=== PATIENT | male | born 1985 | race Two or more races ===

== ENCOUNTER 2024-09-07 12:40 | Emergency (ER) | payer BC, OTHER ==
[~2024-09-07] VITALS: Ht 185.4 cm; Wt 105.1 kg
--- NOTE | 2024-09-07 13:41 | ED.PDOC ---
Back pain HPI HPI Comments 38 year old male presents to the ED with chief complaint of back pain. Patient reports that he has been experiencing lower back pain for the past 2 days, but denies any injury or fall. Patient relays that his pain has worsened over time and is worse when sitting down driving. Patient denies any numbness, weakness, fever, chills, head injury, or fall. Chief Complaint: Back Pain Time Seen by MD: 13:33 Reviewed Notes: Nurses Notes, Medications, Allergies Allergies: Coded Allergies: NO KNOWN ALLERGIES (Unverified , 09/07/24) Information Source: Patient Mode of Arrival: Ambulatory Timing: Days Duration: Since onset Location of Back pain: (B) Lower back Severity: Moderate Prehospital treatment: None Quality: Aching Onset: Spontaneous History of: None Modifying Factors: Movement, Twisting Past Medical History PAST MEDICAL HISTORY: DM Surgical History: Denies all surgeries Family History Family History: Reviewed,noncontributory to illness Social History Smoker: Cigarettes Alcohol: Occasionally Drugs: Denies Drug Use Lives In: Home Constitutional: denies: chills, diaphoresis, fatigue, fever, malaise, sweats, weakness, others EENTM: denies: blurred vision, double vision, ear bleeding, ear discharge, ear drainage, ear pain, ear ringing, eye pain, eye redness, hearing loss, mouth pain, mouth swelling, nasal discharge, nose bleeding, nose congestion, nose pain, photophobia, tearing, throat pain, throat swelling, voice changes, others Respiratory: denies: cough, hemoptysis, orthopnea, SOB at rest, shortness of breath, SOB with excertion, stridor, wheezing, others Cardiovascular: denies: chest pain, dizzy spells, diaphoresis, Dyspnea on exertion, edema, irregular heart beat, left arm pain, lightheadedness, palpitations, PND, syncope, others Gastrointestinal: denies: abdomen distended, abdominal pain, blood streaked bowels, constipated, diarrhea, dysphagia, difficulty swallowing, hematemesis, melena, nausea, poor appetite, poor fluid intake, rectal bleeding, rectal pain, vomiting, others Genitourinary: denies: burning, dysuria, flank pain, frequency, hematuria, incontinence, penile discharge, penile sore, pain, testicle pain, testicle swelling, urgency, others Neurological: denies: dizziness, fainting, headache, left sided numbness, left sided weakness, numbness, paresthesia, pre-existing deficit, right sided numbness, right sided weakness, seizure, speech problems, tingling, tremors, weakness, others Musculoskeletal: reports: back pain; denies: gout, joint pain, joint swelling, muscle pain, muscle stiffness, neck pain, others Integumetry: denies: bruises, change in color, change in hair/nails, dryness, laceration, lesions, lumps, rash, wounds, others Allergic/Immunocompromised: denies: Difficulty Healing, Frequent Infections, Hives, Itching, others Hematologic/Lymphatic: denies: anemia, blood clots, easy bleeding, easy bruising, swollen glands, others Endocrine: denies: excessive hunger, excessive sweating, excessive thirst, excessive urination, flushing, intolerance to cold, intolerance to heat, unexplained weight gain, unexplained weight loss, others Psychiatric: denies: anxiety, bipolar disorder, depression, hopeless, panic disorder, schizophrenia, sleepless, suicidal, others All Other Systems: Reviewed and Negative Physical Exam General Appearance: No Apparent Distress, Normal HEENT: Normal ENT Inspection, Pharynx Normal, TMs Normal Neck: Full Range of Motion, Non-Tender, Normal, Normal Inspection Respiratory: Chest Non-Tender, Lungs Clear, No Accessory Muscle Use, No Respiratory Distress, Normal Breath Sounds Cardiovascular: No Edema, No JVD, No Murmur, No Gallop, Normal Peripheral Pulses, Regular Rate/Rhythm Breast Exam: Deferred Gastrointestinal: No Organomegaly, Non Tender, No Pulsatile Mass, Normal Bowel Sounds, Soft Genitalia: Deferred Pelvic: Deferred Rectal: Deferred Extremities: No calf tenderness, Normal capillary refill, Normal inspection, Normal range of motion, Non-tender, No pedal edema Musculoskeletal : Extremity Location: Back (Parathoracic spine tenderness, no mid-line tenderness.) Apperance: Normal Neurologic: 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 Was a procedure done?: No Back Pain Differential Dx Differential Diagnosis: Fracture, Musculoskeletal Pain, Pyelonephritis, Urinary Tract Infection, Urolithiasis X-Ray, Labs, Meds, VS Vital Signs Date Time Temp Pulse Resp B/P (MAP) Pulse Ox O2 Delivery O2 Flow Rate FiO2 09/07/24 12:59 97.6 78 19 133/91 (105) 95 Time of 1ST Reevaluation: 13:40 Reevaluation 1ST: Unchanged Patient Education/Counseling: Diagnosis, Treatment Family Education/Counseling: No Family Present Additional Information - I discussed treatments and results with medical personnel. pt has reproducible para thoracic muscle tenderness and pain with ROM. i will treat him with flexeril and motrin for now. he is stable to follow up with his PCP Departure 1 Departure Time of Disposition: 14:00 Impression: Primary Impression: Musculoskeletal pain Disposition: HOME / SELF CARE / HOMELESS Condition: Good e-Prescriptions Cyclobenzaprine Hcl (Cyclobenzaprine Hcl) 10 Mg Tab 10 MG PO Q8HP PRN for 3 Days, #9 TAB Prov: BERNICE PIMENTEL MD 09/07/24 Ibuprofen Micronized (MOTRIN TABLET) 600 Mg Tb 600 MG PO TID PRN, #40 TAB *Black box warning-NSAIDS can increase risk of NM & hypertension, GI irritation, ulceration, bleed, perferation. Do not use post cardiac surgery. Use short duration/lowest effective dose. Prov: BERNICE PIMENTEL MD 09/07/24 Discharged With: Self Critical Care Note Critical Care Time?: No Stability Stability form required: No Heart Score Heart Score: Heart Score Response (Comments) Value History N/A 0 EKG N/A 0 Age N/A 0 Risk Factors N/A 0 Troponin N/A 0 Total 0 I personally scribed for BERNICE PIMENTEL MD ([email or web address]) on 09/07/24 at 13:41. Electronically submitted by Zackary Yanes ([email or web address]). BERNICE PIMENTEL MD Sep 07, 2024 13:41
[2024-09-07] MEDS ORDERED: CYCL-838 PO (14:00)
[2024-09-07] MEDS ORDERED: IBU600T PO (14:00)
[2024-09-07] MEDS ORDERED: CYCL-839 PO (14:03)
[2024-09-07 14:22] VITALS: BP 132/95; PULSE 97; RESP 18; TEMP 97.6; O2SAT 95
== END 2024-09-07 14:25 | disposition home or self-care (01) ==
LOC: ER 12:40
DX: M54.50 Low back pain, unspecified (principal); E11.9 Type 2 diabetes mellitus without complications; F17.210 Nicotine dependence, cigarettes, uncomplicated; M79.18 Myalgia, other site

== ENCOUNTER 2024-09-25 19:34 | Emergency (ER) | payer BC, OTHER ==
[~2024-09-25] VITALS: Ht 185.4 cm; Wt 102.4 kg
[~2024-09-25 19:34] MED LIST: CYCL-838 PO; CYCL-839 PO; IBU600T PO
--- NOTE | 2024-09-25 20:43 | DVH ---
INDICATION: Back pain COMPARISON: None TECHNIQUE: For views of the thoracic spine were obtained. FINDINGS: There are 12 rib-bearing thoracic type vertebral bodies. Pedicles are intact. The vertebral body heig hts are maintained. There is no acute fracture. Minor thoracic spondylosis. Visualized lungs are charity r. IMPRESSION: No acute fracture.
[2024-09-25] MEDS ORDERED: TIZA4TAB9 PO (20:53)
[2024-09-25] MEDS ORDERED: METH4PAK PO (20:53)
--- NOTE | 2024-09-25 20:53 | ED.PDOC ---
Back pain HPI HPI Comments This is a 38-year-old male presents to the ED chief complaint back pain x2 weeks. Patient states around 4 days ago was seen here in the ER was prescribed and sent medication to the pharmacy however was unable to fill them. Patient states injury or twisting motion 8/10 on pain scale sore achy in nature to bilateral thoracic mid back. Numbness, weakness, fever, chills, loss of bowel or bladder control or saddle anesthesia. Chief Complaint: Back Pain Time Seen by MD: 19:41 Reviewed Notes: Nurses Notes, Medications, Allergies Allergies: Coded Allergies: NO KNOWN ALLERGIES (Unverified , 09/07/24) Home Meds Active Scripts Methylprednisolone (Medrol Dosepak) 4 Mg Je, 4 MG PO UD for 6 Days, #21 TAB UAD Prov:ENOC PAINTERP 09/25/24 Tizanidine Hydrochloride (Zanaflex) 4 Mg Tab, 1 TAB PO BID PRN for 5 Days, #10 TAB Prov:ENOC PAINTER 09/25/24 Ibuprofen Micronized (MOTRIN TABLET) 600 Mg Tb, 600 MG PO TID PRN, #40 TAB *Black box warning-NSAIDS can increase risk of AL & hypertension, GI irritation, ulceration, bleed, perferation. Do not use post cardiac surgery. Use short duration/lowest effective dose. Prov:BERNICE PIMENTEL MD 09/07/24 Ibuprofen Micronized (MOTRIN TABLET) 600 Mg Tb, 600 MG PO TID PRN, #40 TAB *Black box warning-NSAIDS can increase risk of AL & hypertension, GI irritation, ulceration, bleed, perferation. Do not use post cardiac surgery. Use short duration/lowest effective dose. Prov:BERNICE PIMENTEL MD 09/07/24 Discontinued Scripts Cyclobenzaprine Hcl (Cyclobenzaprine Hcl) 10 Mg Tab, 10 MG PO Q8HP PRN for 3 Days, #9 TAB Prov:BERNICE PIMENTEL MD 09/07/24 Information Source: Patient Mode of Arrival: Ambulatory Past Medical History PAST MEDICAL HISTORY: DM Surgical History: Denies all surgeries Family History Family History: Reviewed,noncontributory to illness Social History Smoker: Cigarettes Alcohol: Occasionally Drugs: Denies Drug Use Lives In: Home Constitutional: denies: chills, diaphoresis, fatigue, fever, malaise, sweats, weakness, others EENTM: denies: blurred vision, double vision, ear bleeding, ear discharge, ear drainage, ear pain, ear ringing, eye pain, eye redness, hearing loss, mouth pain, mouth swelling, nasal discharge, nose bleeding, nose congestion, nose pain, photophobia, tearing, throat pain, throat swelling, voice changes, others Respiratory: denies: cough, hemoptysis, orthopnea, SOB at rest, shortness of breath, SOB with excertion, stridor, wheezing, others Cardiovascular: denies: chest pain, dizzy spells, diaphoresis, Dyspnea on exertion, edema, irregular heart beat, left arm pain, lightheadedness, palpitations, PND, syncope, others Gastrointestinal: denies: abdomen distended, abdominal pain, blood streaked bowels, constipated, diarrhea, dysphagia, difficulty swallowing, hematemesis, melena, nausea, poor appetite, poor fluid intake, rectal bleeding, rectal pain, vomiting, others Genitourinary: denies: burning, dysuria, flank pain, frequency, hematuria, incontinence, penile discharge, penile sore, pain, testicle pain, testicle swelling, urgency, others Neurological: denies: dizziness, fainting, headache, left sided numbness, left sided weakness, numbness, paresthesia, pre-existing deficit, right sided numbness, right sided weakness, seizure, speech problems, tingling, tremors, weakness, others Musculoskeletal: reports: back pain; denies: gout, joint pain, joint swelling, muscle pain, muscle stiffness, neck pain, others Integumetry: denies: bruises, change in color, change in hair/nails, dryness, laceration, lesions, lumps, rash, wounds, others Allergic/Immunocompromised: denies: Difficulty Healing, Frequent Infections, Hives, Itching, others Hematologic/Lymphatic: denies: anemia, blood clots, easy bleeding, easy bruising, swollen glands, others Endocrine: denies: excessive hunger, excessive sweating, excessive thirst, excessive urination, flushing, intolerance to cold, intolerance to heat, unexplained weight gain, unexplained weight loss, others Psychiatric: denies: anxiety, bipolar disorder, depression, hopeless, panic disorder, schizophrenia, sleepless, suicidal, others Physical Exam General Appearance: No Apparent Distress, Normal HEENT: Pharynx Normal Neck: Full Range of Motion, Non-Tender Respiratory: Chest Non-Tender, Lungs Clear, No Respiratory Distress, Normal Breath Sounds Cardiovascular: No Edema, No JVD, No Murmur, No Gallop, Normal Peripheral Pulses, Regular Rate/Rhythm Breast Exam: Deferred Gastrointestinal: No Organomegaly, Non Tender, No Pulsatile Mass, Normal Bowel Sounds, Soft Genitalia: Deferred Pelvic: Deferred Rectal: Deferred Extremities: Normal capillary refill, Normal inspection, Normal range of motion, Non-tender, No pedal edema Musculoskeletal : Location: Bilateral Extremity Location: Back (Thoracic back T1 through T12 moderate tenderness right lateral paraspinal muscles on palpation no noted crepitus or step-offs strength sensory motion intact positive pedal pulses no noted ecchymosis lesions or lacerations or abrasions.) Apperance: Normal Neurologic: Alert, 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 Was a procedure done?: No Back Pain Differential Dx Differential Diagnosis: Fracture, Musculoskeletal Pain X-Ray, Labs, Meds, VS Vital Signs Date Time Temp Pulse Resp B/P (MAP) Pulse Ox O2 Delivery O2 Flow Rate FiO2 09/25/24 21:48 89 19 97 Room Air 09/25/24 21:48 97.5 89 19 130/83 (99) 97 97.5 09/25/24 19:48 Room Air 0 09/25/24 19:48 97.6 99 18 121/83 (96) 96 Current Medications Medications (Trade) Dose Ordered Sig/Tuan Route Start Time Stop Time Status Last Admin Ketorolac Tromethamine (Toradol Injection) 60 mg ONCE ONCE IM 09/25/24 20:00 09/25/24 20:01 DC 09/25/24 21:41 Acetaminophen/ Hydrocodone Bitart ([place] 5/325MG Tab) 1 tab ONCE ONCE PO 09/25/24 20:00 09/25/24 20:01 DC 09/25/24 21:41 X-Ray, Labs, Meds, VS Comment Thoracic spine x-ray shows no acute findings with the osseous lesions. Muscle strain script tizanidine and Medrol Dosepak. She was given Toradol 60 mg IM in clinic along with Percocet 10 mg he notes improvement in pain and function requesting discharge at this time. Patient home with spouse driving. Advised to follow up with his PCP in 2-3 days as necessary consider MRI or physical therapy for continued symptoms ER return precautions given patient agrees with discharge plan of care Time of 1ST Reevaluation: 20:51 Reevaluation 1ST: Improved Patient Education/Counseling: Diagnosis, Treatment, Prognosis, Need For Follow Up Family Education/Counseling: No Family Present Departure 1 Departure Time of Disposition: 20:51 Impression: Primary Impression: Lumbar sprain Qualified Codes: S33.5XXA - Sprain of ligaments of lumbar spine, initial encounter Disposition: HOME / SELF CARE / HOMELESS Condition: Stable e-Prescriptions Methylprednisolone (Medrol Dosepak) 4 Mg Je 4 MG PO UD for 6 Days, #21 TAB UAD Prov: ENOC PAINTER 09/25/24 Tizanidine Hydrochloride (Zanaflex) 4 Mg Tab 1 TAB PO BID PRN for 5 Days, #10 TAB Prov: ENOC PAINTER 09/25/24 Discharged With: Spouse Critical Care Note Critical Care Time?: No Stability Stability form required: ENOC Malin Sep 25, 2024 20:53
[2024-09-25] MEDS: KETOROLAC TROMETH 60MG/2ML VIAL IM ONE (21:41)
[2024-09-25] MEDS: HYDROcodone-ACET 5/325MG TAB PO ONE (21:41)
[2024-09-25 21:48] VITALS: BP 130/83; PULSE 89; RESP 19; TEMP 97.5; O2SAT 97
== END 2024-09-25 21:55 | disposition home or self-care (01) ==
LOC: ER 19:34
DX: S33.5XXA Sprain of ligaments of lumbar spine, initial encounter (principal); E11.9 Type 2 diabetes mellitus without complications; F17.210 Nicotine dependence, cigarettes, uncomplicated; Z79.899 Other long term (current) drug therapy; X58.XXXA Exposure to other specified factors, initial encounter; Y93.89 Activity, other specified; Y92.89 Other specified places as the place of occurrence of the external cause; Y99.8 Other external cause status
CPT/HCPCS: 72070; 96372; 99283; J1885